=== PATIENT | female | born 1940 | race African-American/Black ===

== ENCOUNTER 2018-09-02 14:57 | Inpatient (IN) ==
[2018-09-02] MEDS ORDERED: SODIUM CHLORIDE 0.9% IV STA (15:02)
[2018-09-02] MEDS ORDERED: PHENOBARBITAL IV STA (15:02)
[2018-09-02] MEDS ORDERED: SODIUM CHLORIDE 0.9% 1,000 ML IV STA (15:05)
[2018-09-02] MEDS: MIDAZOLAM 100 MG in SODIUM CHLORIDE 0.9% 80 ML IV PRN (15:15)
[2018-09-02 15:24] LABS: ABG Base Excess -8.9 MMOL/L (-2.5-2.5); ABG HCO3 17.3 MMOL/L (20-26); ABG Oxygen Saturation 99.6 % (95-100); ABG PCO2 35.4 MM HG (35-48); ABG PH 7.289 (7.35-7.45); ABG TCO2 15.8 MMOL/L (23-27)
[2018-09-02 16:04] LABS: Basophils % 0.2 % (0.0-0.8); Hematocrit 28.3 VOL% (35.7-47.0); Hemoglobin 8.7 GM/DL (12.0-16.0); Immature Granulocytes Absolute 0.21 #; Lymphocytes # 0.5 10*3/uL (1.4-4.0); Lymphocytes % 2.3 % (21.3-54.2); Mean Corpuscular HGB Conc 30.7 GM/DL (32-36); Mean Corpuscular Hemoglobin 28 PG (27-34); Mean Corpuscular Volume 90.7 FL (87-102); Mean Platelet Volume 10.8 FL (9.6-12.0); Monocytes # 0.6 10*3/uL (0.11-0.8); Monocytes % 3.1 % (1.7-12.7); Neutrophils # 18.8 10*3/uL (1.4-7.4); Neutrophils % 93.4 % (38.7-73.9); Platelet Count 201 T/CUMM (130-400); Red Blood Count 3.12 MC/CUMM (3.8-5.5); Red Cell Distribution Width 15.3 % (9.3-17.3); White Blood Count 20.1 T/CUMM (4-12)
[2018-09-02 16:15] LABS: INR 1.4; PT Patient Result 15.1 SECS; Partial Thromboplastin Time 23.8 SECS (0-40)
[2018-09-02] MEDS ORDERED: NOREPINEPHRINE 8 MG in SODIUM CHLORIDE 0.9% 242 ML IV PRN (16:15)
[2018-09-02 16:28] LABS: Alanine Aminotransferase 490 U/L (13-56); Albumin 3.2 G/DL (3.4-5.0); Alkaline Phosphatase 75 U/L (45-117); Aspartate Amino Transferase 568 U/L (0-37); Bilirubin,Total < 0.39 MG/DL (0.2-1.0); Blood Urea Nitrogen 55 MG/DL (7-18); Calcium 8.1 MG/DL (8.5-10.1); Glucose 158 MG/DL (74-106); Osmolality,Calculated 298.3 MOS/KG (273-304); Potassium 4.6 MMOL/L (3.5-5.1); Sodium 141 MMOL/L (136-145); Total Protein 6.9 G/DL (6.4-8.3)
[2018-09-02 16:42] LABS: Band Neutrophils 1 % (0-10); Lymphocytes 2 % (20-55); Platelet Estimate Adequate; Segmented Neutrophils 92 % (50-85); Total Cells Counted 100
[2018-09-02 16:43] LABS: Hypochromasia 1+; Ovalocytes Slight
[2018-09-02] MEDS: MEROPENEM 1,000 MG in SODIUM CHLORIDE 0.9% 100 ML IV SCH (17:00)
[2018-09-02 17:17] LABS: Apearance,Urine CLOUDY (Clear); Bacteria,Urine Few /HPF (Few); Bilirubin,Urine Negative (Negative); Blood, Urine Large mg/dL (Negative); Glucose,Urine (UA) Negative (Negative); Ketones,Urine 5 mg/dL (Negative); Mucus,Urine Occasional /LPF (Occasional); Nitrite,Urine Negative (Negative); Protein,Urine 100 MG/DL; RBC,Urine 16 /HPF (0-4); Squamous Epithelial Cell,Urine Occasional /HPF (0-10); Urine Color Yellow (Yellow); Urine Specific Gravity 1.013 (1.001-1.035); Urine Urobilinogen < 2.0 EU/DL (0.2-1.0); WBC,Urine 25 /HPF (0-6)
[2018-09-02] MEDS ORDERED: ACETAMINOPHEN 325 MG TABLET PO PRN (18:19)
[2018-09-02] MEDS: PANTOPRAZOLE 40 MG VIAL IV SCH (18:36)
[2018-09-02] MEDS: SODIUM CHLORIDE 0.9% 1,000 ML IV SCH (18:36)
[2018-09-02] MEDS ORDERED: ENOXAPARIN 30 MG/0.3 ML SYRINGE SUBCUT SCH (21:00)
[2018-09-02] MEDS ORDERED: LORazepam 2 MG/1 ML VIAL IV PRN (21:18)
[2018-09-02] MEDS: MORPHINE 4 MG/1 ML VIAL IV PRN (21:35)
[2018-09-03] MEDS: SODIUM CHLORIDE 0.9% 1,000 ML IV SCH ×4 (00:19→18:10)
[2018-09-03] MEDS: MIDAZOLAM 100 MG in SODIUM CHLORIDE 0.9% 80 ML IV PRN (01:40)
[2018-09-03 03:31] LABS: ABG Base Excess -7.7 MMOL/L (-2.5-2.5); ABG HCO3 18.2 MMOL/L (20-26); ABG Oxygen Saturation 99.8 % (95-100); ABG PCO2 29.2 MM HG (35-48); ABG PH 7.364 (7.35-7.45); ABG TCO2 15.2 MMOL/L (23-27); Pt O2 Delivery Device Ventilator
[2018-09-03 04:35] LABS: Basophils % 0.1 % (0.0-0.8); Hematocrit 26.1 VOL% (35.7-47.0); Hemoglobin 8.2 GM/DL (12.0-16.0); Immature Granulocytes % 0.8 %; Immature Granulocytes Absolute 0.16 #; Lymphocytes # 0.7 10*3/uL (1.4-4.0); Lymphocytes % 3.8 % (21.3-54.2); Mean Corpuscular HGB Conc 31.4 GM/DL (32-36); Mean Corpuscular Hemoglobin 28 PG (27-34); Mean Corpuscular Volume 88.8 FL (87-102); Mean Platelet Volume 10.8 FL (9.6-12.0); Monocytes # 0.5 10*3/uL (0.11-0.8); Monocytes % 2.4 % (1.7-12.7); Neutrophils # 18.2 10*3/uL (1.4-7.4); Neutrophils % 92.9 % (38.7-73.9); Platelet Count 184 T/CUMM (130-400); Red Blood Count 2.94 MC/CUMM (3.8-5.5); Red Cell Distribution Width 15.2 % (9.3-17.3); White Blood Count 19.5 T/CUMM (4-12)
[2018-09-03 05:00] LABS: Band Neutrophils 3 % (0-10); Lymphocytes 2 % (20-55); Metamyelocytes 1 %; Platelet Estimate Normal; Segmented Neutrophils 93 % (50-85); Total Cells Counted 100
[2018-09-03] MEDS: MEROPENEM 1,000 MG in SODIUM CHLORIDE 0.9% 100 ML IV SCH (05:00)
[2018-09-03 05:19] LABS: Alanine Aminotransferase 375 U/L (13-56); Alkaline Phosphatase 64 U/L (45-117); Aspartate Amino Transferase 428 U/L (0-37); Bilirubin,Total < 0.39 MG/DL (0.2-1.0); Blood Urea Nitrogen 58 MG/DL (7-18); Calcium 8.3 MG/DL (8.5-10.1); Glucose 113 MG/DL (74-106); Osmolality,Calculated 299.1 MOS/KG (273-304); Potassium 4.9 MMOL/L (3.5-5.1); Sodium 142 MMOL/L (136-145); Total Protein 6.4 G/DL (6.4-8.3)
[2018-09-03] MEDS: hydrALAZINE 20 MG/1 ML VIAL IV PRN ×2 (06:07→12:55)
[2018-09-03] MEDS: PANTOPRAZOLE 40 MG VIAL IV SCH (09:00)
[2018-09-03] MEDS: PHENYTOIN 100 MG/2 ML VIAL IV SCH ×2 (13:00→21:13)
[2018-09-03] MEDS: ASPIRIN 325 MG TABLET PO SCH (15:30)
[2018-09-03] MEDS: MORPHINE 4 MG/1 ML VIAL IV PRN (16:05)
[2018-09-03] MEDS: MEROPENEM 500 MG in SODIUM CHLORIDE 0.9% 100 ML IV SCH (16:15)
[2018-09-03] MEDS: cloNIDine 0.3 MG/24 HR PATCH TRANSDERM SCH (17:00)
[2018-09-03] MEDS: METOPROLOL TARTRATE 5 MG/5 ML VIAL IV SCH (18:20)
[2018-09-03] MEDS: ENOXAPARIN 100 MG/ML SYRINGE SUBCUT SCH (18:20)
[2018-09-04] MEDS: METOPROLOL TARTRATE 5 MG/5 ML VIAL IV SCH ×4 (00:25→18:05)
[2018-09-04] MEDS: SODIUM CHLORIDE 0.9% 1,000 ML IV SCH ×3 (02:32→19:43)
[2018-09-04 02:53] LABS: ABG Base Excess -8.2 MMOL/L (-2.5-2.5); ABG HCO3 17.8 MMOL/L (20-26); ABG Oxygen Saturation 99.8 % (95-100); ABG PCO2 27.1 MM HG (35-48); ABG PH 7.377 (7.35-7.45); ABG TCO2 14.8 MMOL/L (23-27); Pt O2 Delivery Device Ventilator
[2018-09-04] MEDS: MEROPENEM 500 MG in SODIUM CHLORIDE 0.9% 100 ML IV SCH ×2 (04:24→16:05)
[2018-09-04] MEDS: PHENYTOIN 100 MG/2 ML VIAL IV SCH ×3 (05:20→21:52)
[2018-09-04 05:50] LABS: Basophils % 0.2 % (0.0-0.8); Eosinophils % 0.1 % (0.00-10.9); Hematocrit 26.4 VOL% (35.7-47.0); Hemoglobin 8.4 GM/DL (12.0-16.0); Immature Granulocytes % 0.7 %; Immature Granulocytes Absolute 0.12 #; Lymphocytes # 0.8 10*3/uL (1.4-4.0); Lymphocytes % 4.5 % (21.3-54.2); Mean Corpuscular HGB Conc 31.8 GM/DL (32-36); Mean Corpuscular Hemoglobin 28 PG (27-34); Mean Corpuscular Volume 88.3 FL (87-102); Mean Platelet Volume 12.1 FL (9.6-12.0); Monocytes # 0.5 10*3/uL (0.11-0.8); Monocytes % 2.5 % (1.7-12.7); Neutrophils # 16.6 10*3/uL (1.4-7.4); Platelet Count 195 T/CUMM (130-400); Red Blood Count 2.99 MC/CUMM (3.8-5.5); Red Cell Distribution Width 15.7 % (9.3-17.3)
[2018-09-04 06:12] LABS: Albumin 2.7 G/DL (3.4-5.0); Bilirubin,Total 0.8 MG/DL (0.2-1.0); Osmolality,Calculated 299.3 MOS/KG (273-304); Potassium 5.2 MMOL/L (3.5-5.1); Total Protein 6.6 G/DL (6.4-8.3)
[2018-09-04 06:31] LABS: Band Neutrophils 2 % (0-10); Lymphocytes 2 % (20-55); Platelet Estimate Normal; Segmented Neutrophils 94 % (50-85); Total Cells Counted 100
[2018-09-04] MEDS: PANTOPRAZOLE 40 MG VIAL IV SCH (09:20)
[2018-09-04] MEDS: ASPIRIN 325 MG TABLET PO SCH (09:20)
[2018-09-04] MEDS: hydrALAZINE 20 MG/1 ML VIAL IV PRN (16:18)
[2018-09-04] MEDS: ENOXAPARIN 100 MG/ML SYRINGE SUBCUT SCH (18:05)
[2018-09-04] MEDS: MIDAZOLAM 100 MG in SODIUM CHLORIDE 0.9% 80 ML IV PRN (18:35)
[2018-09-04] MEDS: MORPHINE 4 MG/1 ML VIAL IV PRN (19:36)
[2018-09-05] MEDS: METOPROLOL TARTRATE 5 MG/5 ML VIAL IV SCH ×2 (00:20→06:20)
[2018-09-05 03:38] LABS: ABG Base Excess -8.4 MMOL/L (-2.5-2.5); ABG HCO3 17.6 MMOL/L (20-26); ABG Oxygen Saturation 99.1 % (95-100); ABG PCO2 27.2 MM HG (35-48); ABG PH 7.372 (7.35-7.45); ABG TCO2 14.8 MMOL/L (23-27)
[2018-09-05] MEDS: SODIUM CHLORIDE 0.9% 1,000 ML IV SCH ×2 (03:43→14:28)
[2018-09-05] MEDS: MEROPENEM 500 MG in SODIUM CHLORIDE 0.9% 100 ML IV SCH ×2 (04:36→15:53)
[2018-09-05] MEDS: PHENYTOIN 100 MG/2 ML VIAL IV SCH ×3 (04:49→21:11)
[2018-09-05 04:56] LABS: Basophils # 0.1 10*3/uL (0.0-0.2); Basophils % 0.4 % (0.0-0.8); Eosinophils # 0.1 10*3/uL (0.0-0.87); Eosinophils % 0.6 % (0.00-10.9); Hematocrit 25.8 VOL% (35.7-47.0); Hemoglobin 8.2 GM/DL (12.0-16.0); Immature Granulocytes % 0.8 %; Immature Granulocytes Absolute 0.11 #; Lymphocytes # 1.3 10*3/uL (1.4-4.0); Lymphocytes % 9.2 % (21.3-54.2); Mean Corpuscular HGB Conc 31.8 GM/DL (32-36); Mean Corpuscular Hemoglobin 29 PG (27-34); Mean Corpuscular Volume 89.6 FL (87-102); Mean Platelet Volume 11.8 FL (9.6-12.0); Monocytes # 0.5 10*3/uL (0.11-0.8); Monocytes % 3.3 % (1.7-12.7); Neutrophils # 12.2 10*3/uL (1.4-7.4); Neutrophils % 85.7 % (38.7-73.9); Platelet Count 188 T/CUMM (130-400); Red Blood Count 2.88 MC/CUMM (3.8-5.5); Red Cell Distribution Width 15.8 % (9.3-17.3); White Blood Count 14.2 T/CUMM (4-12)
[2018-09-05 05:23] LABS: Alanine Aminotransferase 185 U/L (13-56); Albumin 2.6 G/DL (3.4-5.0); Alkaline Phosphatase 88 U/L (45-117); Aspartate Amino Transferase 137 U/L (0-37); Bilirubin,Total < 0.39 MG/DL (0.2-1.0); Blood Urea Nitrogen 61 MG/DL (7-18); Calcium 8.1 MG/DL (8.5-10.1); Glucose 107 MG/DL (74-106); Osmolality,Calculated 295.4 MOS/KG (273-304); Potassium 5.1 MMOL/L (3.5-5.1); Sodium 140 MMOL/L (136-145); Total Protein 6.2 G/DL (6.4-8.3)
[2018-09-05] MEDS: ASPIRIN 325 MG TABLET PO SCH (08:27)
[2018-09-05] MEDS: PANTOPRAZOLE 40 MG VIAL IV SCH (08:27)
[2018-09-05] MEDS ORDERED: METOPROLOL TARTRATE 25 MG TABLET PO SCH (10:30)
[2018-09-05] MEDS: METOPROLOL TARTRATE 25 MG TABLET PO SCH ×2 (18:21→18:22)
[2018-09-05] MEDS: ENOXAPARIN 100 MG/ML SYRINGE SUBCUT SCH (18:23)
[2018-09-05] MEDS: hydrALAZINE 20 MG/1 ML VIAL IV PRN (18:32)
[2018-09-06] MEDS: METOPROLOL TARTRATE 25 MG TABLET PO SCH ×4 (00:35→17:00)
[2018-09-06 03:37] LABS: ABG Base Excess -8.8 MMOL/L (-2.5-2.5); ABG HCO3 15.1 MMOL/L (20-26); ABG Oxygen Saturation 98.9 % (95-100); ABG PH 7.382 (7.35-7.45); ABG PO2 168.1 MM HG (80-95); ABG TCO2 15.9 MMOL/L (23-27); Allen Test Positive; Pt O2 Delivery Device Ventilator
[2018-09-06] MEDS: MEROPENEM 500 MG in SODIUM CHLORIDE 0.9% 100 ML IV SCH ×2 (04:10→16:52)
[2018-09-06] MEDS: hydrALAZINE 20 MG/1 ML VIAL IV PRN ×2 (04:35→15:31)
[2018-09-06] MEDS: PHENYTOIN 100 MG/2 ML VIAL IV SCH ×4 (05:01→21:16)
[2018-09-06 05:20] LABS: Basophils # 0.1 10*3/uL (0.0-0.2); Basophils % 0.5 % (0.0-0.8); Eosinophils # 0.1 10*3/uL (0.0-0.87); Eosinophils % 1.2 % (0.00-10.9); Hematocrit 26.8 VOL% (35.7-47.0); Hemoglobin 8.2 GM/DL (12.0-16.0); Immature Granulocytes % 0.7 %; Immature Granulocytes Absolute 0.07 #; Lymphocytes % 9.5 % (21.3-54.2); Mean Corpuscular HGB Conc 30.6 GM/DL (32-36); Mean Corpuscular Hemoglobin 28 PG (27-34); Mean Corpuscular Volume 89.9 FL (87-102); Mean Platelet Volume 12.3 FL (9.6-12.0); Monocytes # 0.4 10*3/uL (0.11-0.8); Monocytes % 4.1 % (1.7-12.7); NRBC # 0.02 10*3/uL; Neutrophils # 8.5 10*3/uL (1.4-7.4); Platelet Count 199 T/CUMM (130-400); Red Blood Count 2.98 MC/CUMM (3.8-5.5); Red Cell Distribution Width 15.9 % (9.3-17.3); White Blood Count 10.1 T/CUMM (4-12)
[2018-09-06 05:21] LABS: Alanine Aminotransferase 130 U/L (13-56); Albumin 2.4 G/DL (3.4-5.0); Alkaline Phosphatase 96 U/L (45-117); Aspartate Amino Transferase 89 U/L (0-37); Bilirubin,Total < 0.39 MG/DL (0.2-1.0); Blood Urea Nitrogen 64 MG/DL (7-18); Calcium 8.6 MG/DL (8.5-10.1); Glucose 113 MG/DL (74-106); Osmolality,Calculated 293.7 MOS/KG (273-304); Potassium 5.3 MMOL/L (3.5-5.1); Sodium 138 MMOL/L (136-145); Total Protein 6.1 G/DL (6.4-8.3)
[2018-09-06] MEDS ORDERED: SODIUM BICARBONATE 50 MEQ/50 ML VIAL IV ONE (08:06)
[2018-09-06] MEDS: ASPIRIN 325 MG TABLET PO SCH (08:35)
[2018-09-06] MEDS: PANTOPRAZOLE 40 MG VIAL IV SCH (08:36)
[2018-09-06] MEDS: amLODIPine 5 MG TABLET PO SCH (11:57)
[2018-09-06] MEDS: ENOXAPARIN 100 MG/ML SYRINGE SUBCUT SCH (17:00)
[2018-09-07] MEDS: METOPROLOL TARTRATE 25 MG TABLET PO SCH ×2 (00:33→05:37)
[2018-09-07 04:12] LABS: Allen Test Positive; Pt O2 Delivery Device Ventilator
[2018-09-07 04:14] LABS: ABG Base Excess -7.9 MMOL/L (-2.5-2.5); ABG Oxygen Saturation 98.1 % (95-100); ABG PH 7.373 (7.35-7.45); ABG TCO2 15.1 MMOL/L (23-27)
[2018-09-07] MEDS: MEROPENEM 500 MG in SODIUM CHLORIDE 0.9% 100 ML IV SCH (04:30)
[2018-09-07 04:44] LABS: Basophils # 0.1 10*3/uL (0.0-0.2); Basophils % 0.7 % (0.0-0.8); Eosinophils # 0.1 10*3/uL (0.0-0.87); Hemoglobin 8.4 GM/DL (12.0-16.0); Immature Granulocytes % 0.6 %; Immature Granulocytes Absolute 0.05 #; Lymphocytes # 1.3 10*3/uL (1.4-4.0); Lymphocytes % 14.3 % (21.3-54.2); Mean Corpuscular HGB Conc 31.1 GM/DL (32-36); Mean Corpuscular Hemoglobin 28 PG (27-34); Mean Corpuscular Volume 89.1 FL (87-102); Monocytes # 0.5 10*3/uL (0.11-0.8); Monocytes % 5.1 % (1.7-12.7); NRBC # 0.02 10*3/uL; Neutrophils # 6.9 10*3/uL (1.4-7.4); Neutrophils % 78.3 % (38.7-73.9); Platelet Count 222 T/CUMM (130-400); Red Blood Count 3.03 MC/CUMM (3.8-5.5); Red Cell Distribution Width 15.6 % (9.3-17.3); White Blood Count 8.8 T/CUMM (4-12)
[2018-09-07 04:47] LABS: Alanine Aminotransferase 98 U/L (13-56); Albumin 2.3 G/DL (3.4-5.0); Alkaline Phosphatase 104 U/L (45-117); Aspartate Amino Transferase 64 U/L (0-37); Bilirubin,Total < 0.39 MG/DL (0.2-1.0); Blood Urea Nitrogen 64 MG/DL (7-18); Calcium 8.5 MG/DL (8.5-10.1); Glucose 107 MG/DL (74-106); Osmolality,Calculated 294.5 MOS/KG (273-304); Potassium 5.7 MMOL/L (3.5-5.1); Sodium 139 MMOL/L (136-145); Total Protein 6.3 G/DL (6.4-8.3)
[2018-09-07] MEDS: PHENYTOIN 100 MG/2 ML VIAL IV SCH ×3 (05:37→20:22)
[2018-09-07] MEDS: ASPIRIN 325 MG TABLET PO SCH (08:24)
[2018-09-07] MEDS: PANTOPRAZOLE 40 MG VIAL IV SCH (08:24)
[2018-09-07] MEDS: amLODIPine 5 MG TABLET PO SCH (08:24)
[2018-09-07] MEDS: MORPHINE 4 MG/1 ML VIAL IV PRN (13:20)
[2018-09-08] MEDS: MORPHINE 4 MG/1 ML VIAL IV PRN ×4 (04:36→16:55)
[2018-09-08] MEDS: PHENYTOIN 100 MG/2 ML VIAL IV SCH ×3 (04:37→21:37)
[2018-09-09] MEDS: MORPHINE 4 MG/1 ML VIAL IV PRN ×2 (04:21→09:00)
[2018-09-09] MEDS: PHENYTOIN 100 MG/2 ML VIAL IV SCH ×3 (04:23→21:11)
[2018-09-10] MEDS: PHENYTOIN 100 MG/2 ML VIAL IV SCH ×3 (05:51→20:16)
[2018-09-10] MEDS: cloNIDine 0.3 MG/24 HR PATCH TRANSDERM SCH (08:42)
[2018-09-11] MEDS: PHENYTOIN 100 MG/2 ML VIAL IV SCH ×3 (04:51→20:14)
[2018-09-11] MEDS: LORazepam 2 MG/1 ML VIAL IV PRN ×3 (08:17→19:41)
[2018-09-11] MEDS: MORPHINE 4 MG/1 ML VIAL IV PRN (12:33)
[2018-09-11 20:47] VITALS: BP 167/71
[2018-09-12] MEDS: MORPHINE 4 MG/1 ML VIAL IV PRN (00:14)
[2018-09-12] MEDS: LORazepam 2 MG/1 ML VIAL IV PRN (00:55)
== END 2018-09-12 05:05 | disposition expired | DRG 207 ==
LOC: N.ED 14:57 → N.EDINP 15:52 → SUATTDRO 15:52 → N.ICU 18:18 → N.4E 09-09 11:10
PROVIDERS: ADMIT Internal Medicine; ATTEND Internal Medicine